=== PATIENT | female | born 1985 ===

== ENCOUNTER 2018-07-29 00:08 | Day surgery (SDC) | payer OTHER, BC ==
--- NOTE | 2018-07-28 12:32 | History & Physical ---
History of Present Illness Chief Complaint Cervical dysplasia History of Present Illness 32-year-old G0 presents for a cold knife conization due to severe cervical dysplasia. She had a Pap smear in 01/2018 with ASCUS with high risk HPV. She subsequently had a colposcopy on 06/18/18 with cervical biopsies. The endocervical curetting revealed high-grade lesions, at least CRISTIAN-2. She had a 5 o'clock and 12 o'clock biopsy which both revealed CRISTIAN-3. She has required 2 colposcopies in 2013 and 2016 in [place]. She has never before had an excisional procedure. She is a nonsmoker and has received Gardasil. She is working on her masters in zoology. History Obstetrical History: Nulliparous Past Medical History: PMH: Anxiety PSH: Sinus surgery Allergies: Coded Allergies: No Known Drug Allergies (Unverified , 06/18/18) Social History: No tobacco or social drug use. She drinks alcohol occasionally. She is a full-time student at . Family History: Patient reports no known family medical history. Med Rec Home Meds Reported Medications Scopolamine (Scopolamine) 1 Mg/3 Day Patch.td.3, 1 PATCH TD ONCE 07/17/18 Cetirizine Hcl (ZYRTEC) 10 Mg Capsule, 10 MG PO QDAY, CAPSULE 07/17/18 Norethindrone-E.estradiol-Iron ([place] Fe 1-20 Tablet) 1 Each Tablet 06/18/18 Gabapentin (GABAPENTIN) 300 Mg Capsule, 300 MG PO TID, CAPSULE 06/18/18 Escitalopram Oxalate (ESCITALOPRAM OXALATE) 10 Mg Tablet, 15 MG PO QDAY, TAB 06/18/18 Review of Systems Constitutional: No Fever Neurological: No Syncope Cardiovascular: No Chest Pain, No Palpitations Respiratory: No Shortness of Breath, No Cough Gastrointestinal: No Nausea, No Vomiting, No Diarrhea, No Abdominal Pain Genitourinary: No Dysuria Musculoskeletal: No Pain Psychiatric: Anxiety; No Depression Exam General Exam Vital Signs Height 66 in / 167.64 cm Weight 127 lbs 0 oz / 57.983626 kg BSA 1.63 m2 BMI 20.5 kg/m2 Temperature 98.6 F / 37 C - Temporal Blood Pressure 134/97 Sitting, Left Arm General Apperance: Alert/Awake/No Acute Distress Neuro: No Gross deficits Cardiovascular: Regular Rate and Rhythm Respiratory: No Respiratory Distress Abdomen: Soft, Non-Tender, Non-Distended : Normal Musculoskeletal: No Weakness/Pain Extremities: No Cyanosis,Clubbing or Edema Integumentary: Skin Intact without Lesions or Rash Psychological: Alert & Oriented X3, Appropriate Mood & Affect Assessment and Plan Problems: (1) Severe dysplasia of cervix (CRISTIAN III) Assessment & Plan: 32-year-old G0 presents for cold knife conization due to CRISTIAN-3. Her recent colposcopy on 06/18/18 revealed CRISTIAN-3 on two separate biopsies. She also had at least a CRISTIAN-2 on endocervical curetting. She has been recommended to undergo cold knife conization for treatment and to rule out overt cancer. After discussing the risks, benefits and alternatives she would like to proceed. All of her questions were addressed prior to surgery. LUDWIG ARIZA MD Jul 28, 2018 12:31
[~2018-07-29] VITALS: Ht 167.6 cm; Wt 56.7 kg
[~2018-07-29 00:08] MED LIST: CETI10CA8 PO; ESCI10TA8 PO; GABA-549 PO; NORE1TAB; SCOP1PAT16 TD
[2018-07-29] MEDS ORDERED: FERRIC SUBSULFATE 8 GM TP ONE (07:30)
[2018-07-29] MEDS: NORMOSOL R SOLN(*) 1000 ML BAG 1,000 ML IV PRN ×2 (09:18→12:42)
[2018-07-29 09:35] VITALS: BP 135/98
[2018-07-29 09:43] LABS: PLATELET COUNT, AUTOMATED 271 K/uL (150-450)
[2018-07-29] MEDS ORDERED: DEXAMETHASONE SOD PHOS 10MG/ML ONE (09:53)
[2018-07-29] MEDS ORDERED: LIDOCAINE MPF 1% 5 ML VIAL ONE (09:53)
[2018-07-29] MEDS ORDERED: PROPOFOL EMUL(*) 10MG/ML 20 ML 60 ML ONE (09:53)
[2018-07-29] MEDS ORDERED: ONDANSETRON 4 MG/2 ML VIAL ONE (09:53)
[2018-07-29] MEDS ORDERED: fentaNYL CITR 100 MCG/2 ML AMP ONE (09:55)
[2018-07-29] MEDS ORDERED: KETAMINE HCL 200 MG/20 ML MDV ONE (09:56)
[2018-07-29] MEDS ORDERED: VASOPRESSIN 20 UNIT/ML VIAL ONE (10:39)
[2018-07-29] MEDS ORDERED: HALOPERIDOL LACT 5 MG/ML VIAL IM ONE (11:44)
[2018-07-29] MEDS ORDERED: NS(*) 0.9% 100 ML BAG 100 ML ONE (11:54)
[2018-07-29] MEDS ORDERED: KETOROLAC 30 MG/ML VIAL ONE (12:07)
--- NOTE | 2018-07-29 12:30 | Post Operative Note ---
Operative Note - OFFSHORING MANAGER Operative Day Date: Jul 29, 2018 Time: 12:30 Physicians Surgeon: Stephanie Anesthesia: Ervin, General LMA Diagnosis Pre-Op Diagnosis: CIN3 on ectocervix and endocervix Post-Op Diagnosis: Same Procedure Procedure(s): CKC Specimen Removed:(Maybe N/A): Cervical conization Fluids Estimated Blood Loss: Minimal LUDWIG ARIZA MD Jul 29, 2018 12:30
[2018-07-29] MEDS ORDERED: LR(*) 1000 ML BAG 1,000 ML IV ONE (12:31)
[2018-07-29] MEDS ORDERED: LOR5/325 PO (12:33)
[2018-07-29] MEDS ORDERED: IBUP800T37 PO (12:33)
[2018-07-29] MEDS ORDERED: METOCLOPRAMIDE 10 MG/2 ML SDV IVP PRN (12:35)
[2018-07-29] MEDS ORDERED: APAP/HYDROCODONE 325/5 TAB PO PRN (12:35)
--- NOTE | 2018-07-29 12:35 | Short(Outpt) Discharge Summary ---
Discharge Summary Reason for Hosp/Final Diag: (1) Severe dysplasia of cervix (CRISTIAN III) Hospital Course & Plan: 32-year-old G0 presents for cold knife conization due to CRISTIAN-3. Her recent colposcopy on 06/18/18 revealed CRISTIAN-3 on two separate biopsies. She also had at least a CRISTIAN-2 on endocervical curetting. She has been recommended to undergo cold knife conization for treatment and to rule out overt cancer. After discussing the risks, benefits and alternatives she would like to proceed. All of her questions were addressed prior to surgery. Departure Discharge to: Home, Self Care Discharge Instructions Home Meds Active Scripts Hydrocodone Bit/Acetaminophen (HYDROCODON-ACETAMINOPHEN 5-325) 1 Each Tablet, 1 EACH PO Q4-6H PRN for pain, #10 TAB 0 Refills Prov:LUDWIG ARIZA MD 07/29/18 Reported Medications Scopolamine (Scopolamine) 1 Mg/3 Day Patch.td.3, 1 PATCH TD ONCE 07/17/18 Cetirizine Hcl (ZYRTEC) 10 Mg Capsule, 10 MG PO QDAY, CAPSULE 07/17/18 Norethindrone-E.estradiol-Iron ([place] Fe 1-20 Tablet) 1 Each Tablet 06/18/18 Gabapentin (GABAPENTIN) 300 Mg Capsule, 300 MG PO TID, CAPSULE 06/18/18 Escitalopram Oxalate (ESCITALOPRAM OXALATE) 10 Mg Tablet, 15 MG PO QDAY, TAB 06/18/18 Diet: Regular Special Instructions: Pelvic rest; lifting is ok LUDWIG ARIZA MD Jul 29, 2018 12:35
[2018-07-29] MEDS ORDERED: MIDAZOLAM 2 MG/2 ML VIAL IVP PRN (12:40)
[2018-07-29] MEDS ORDERED: FAMOTIDINE 20 MG TAB PO ONE (12:40)
[2018-07-29] MEDS ORDERED: LIDOCAINE/SOD BICARB 8.4% SYR ID ONE (12:40)
[2018-07-29 13:25] VITALS: BP 123/92
--- NOTE | 2018-07-29 13:30 | OPERATIVE REPORT 1 ---
EVENT DATE: July 29, 2018 SURGEON: Linnea Brown MD ANESTHESIOLOGIST: Tha Mueller MD ANESTHESIA: General laryngeal mask airway. PREOPERATIVE DIAGNOSIS CRISTIAN-3 on ectocervix and endocervix POSTOPERATIVE DIAGNOSIS CRISTIAN-3 on ectocervix and endocervix PROCEDURE PERFORMED Cold knife conization of the cervix. SPECIMEN REMOVED Cervical cone biopsy. ESTIMATED BLOOD LOSS Minimal. INDICATIONS FOR PROCEDURE This patient is a 32-year old 0 who initially presented as a referral for ASCUS Pap Smear with high-risk HPV. On colposcopy, there was concern for high-grade dysplasia and she had two ectocervical biopsies which revealed CRISTIAN-3 as well as endocervical curettings with at least CRISTIAN-2. She was, therefore, consented for a cold-knife conization and admitted for the same. Please see history and physical for full details. DESCRIPTION OF PROCEDURE The patient was properly identified and taken to the operating room. She was placed in the dorsal lithotomy position and prepped externally and draped for a vaginal procedure. A weighted speculum was then placed followed by a curved [place] anteriorly with visualization of the cervix. The cervix was prepped with Lugol's iodine in order to further identify the squamocolumnar junction. Two sutures were placed, one at 3 o'clock and one at the 9 o'clock position, and saved for later use. This allowed for traction of the cervix. The cervix was then circumferentially infiltrated with vasopressin solution to decrease bleeding during the procedure. An Allis clamp was then utilized anteriorly to also elevate the cervix for better visualization. A scalpel was then utilized and starting posteriorly was utilized to initiate the conization in a sawing fashion, working in a clockwise fashion from [address] o[address] back around anteriorly and to the side. Once the conf[place] was completed, the base at the endocervix was then also using the scalpel. An excellent cone biopsy was obtained and the 12 o'clock position was tagged for identification for the pathologist. The cone bed was relatively hemostatic at this time. The entire bed of the cervix was then cauterized with an electrode ball to allow for destruction of any further dysplasia on the margin. This allowed for hemostasis. Monsel's was still placed for additional hemostasis. The stay sutures were then utilized to tie down circumferentially around the cervix. Hemostasis was assured. The vagina was then copiously irrigated and noted to be hemostatic. The speculum was then removed. The patient tolerated this procedure well and recovered in the Post-Anesthesia Care Unit. All sponge and needle counts were correct at the end of the procedure. TRUPTI
[2018-07-29 14:02] VITALS: BP 115/86
[2018-07-29] MEDS ORDERED: ACET/HYDROC 5/325MG TH ER ONLY 2 TAB/BOTTLE PO ONE ×2 (14:25→14:30)
[2018-07-29 14:39] VITALS: BP 113/74
[2018-07-29 14:45] VITALS: BP 126/90
[2018-07-29 14:47] VITALS: BP 123/88
[2018-07-29] MEDS ORDERED: IBUPROFEN 800 MG TAB PO SCH (17:00)
== END 2018-07-29 13:25 | disposition home or self-care (01) ==
LOC: OR 00:08
PROVIDERS: ATTEND Obstetrics & Gynecology
DX: D06.0 Carcinoma in situ of endocervix (principal); D06.1 Carcinoma in situ of exocervix
CPT/HCPCS: 36415; 57520; 84703; 85025; J1100; J1630; J1885; J2001; J2250; J2405; J2704; J3010; J3490; J7050